=== PATIENT | female | born 1955 | race Caucasian/White ===

== ENCOUNTER 2019-01-05 19:04 | Emergency (ER) | payer MEDICARE ==
[2019-01-05] MEDS ORDERED: ASPIRIN PO ONE (19:43)
[2019-01-05] MEDS ORDERED: MORPHINE IV ONE (19:59)
[2019-01-05] MEDS ORDERED: NITROSTAT SL ONE (19:59)
[2019-01-05] MEDS ORDERED: REGLAN IV ONE (20:00)
[2019-01-05] MEDS ORDERED: CARDENE 50 MG in NACL 0.9% 250ML 230 ML IV SCH (20:00)
[2019-01-05 20:26] LABS: Basophils # (Auto) 0.1 K/mm3 (0.0-0.1); Basophils % (Auto) 0.7 % (0.0-1.8); Eosinophils # (Auto) 0.2 K/mm3 (0.0-0.4); Eosinophils % (Auto) 1.4 % (0.0-4.3); Hematocrit 35.8 % (30.3-42.9); Hemoglobin 11.8 gm/dl (10.1-14.3); Lymphocytes # (Auto) 1.5 K/mm3 (1.2-5.4); Lymphocytes % (Auto) 11.4 % (13.4-35.0); Mean Corpuscular HGB Conc 33 % (30-34); Mean Corpuscular Volume 84 fl (79-97); Monocytes # (Auto) 0.7 K/mm3 (0.0-0.8); Monocytes % (Auto) 5.5 % (0.0-7.3); Platelet Count 163 K/mm3 (140-440); Red Blood Count 4.24 M/mm3 (3.65-5.03); Red Cell Distribution Width 14.3 % (13.2-15.2)
[2019-01-05 20:36] LABS: INR 0.89 (0.87-1.13)
[2019-01-05 20:37] LABS: Partial Thromboplastin Time 25.6 Sec. (24.2-36.6)
[2019-01-05 20:39] LABS: Calcium 8.4 mg/dL (8.4-10.2)
--- NOTE | 2019-01-05 20:45 | XRay Report ---
PROCEDURE: XR CHEST 1V AP TECHNIQUE: Chest radiograph single view. HISTORY: Chest Pain COMPARISONS: None . FINDINGS: Heart: Heart is enlarged. Mediastinum/Vessels: Normal. Lungs/Pleural space: There are bilateral perihilar infiltrates greater on the right. There is no eff usion or pneumothorax.. Bony thorax: No acute osseous abnormality. Life support devices: None. IMPRESSION: Heart is enlarged. There are bilateral perihilar infiltrates greater on the right. There is no effusion or pneumothorax. .. This document is electronically signed by Suleiman Finn MD., January 05 2019 08:43:01 PM ET
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
[2019-01-05 23:16] LABS: Chol/HDL Ratio 2.37 %
--- NOTE | 2019-01-05 23:26 | Cat Scan Report ---
PROCEDURE: CT HEAD/BRAIN WO CON HISTORY: ams FINDINGS: Unenhanced CT of the brain was performed and demonstrates an acute left thalamic hemorrhage , image 29, 0.9 x 0.5 cm. There is no midline shift or mass effect. No extension of hemorrhage into t he ventricular system is seen. There are are moderate chronic appearing small vessel ischemic white matter changes in subcortical an d periventricular white matter. There is intracranial atherosclerosis. The mastoid air cells and middle ears appear clear. There is bilateral maxillary sinus mucosal thicke sophy without acute sinusitis. IMPRESSION: Acute left colonic intraparenchymal hemorrhage This document is electronically signed by Nikolas Lindsey MD., January 05 2019 11:23:37 PM ET
[2019-01-06 01:22] VITALS: BP 159/75
== END 2019-01-06 01:22 | disposition other institution (70) ==
LOC: ED 19:04
DX: I61.8 Other nontraumatic intracerebral hemorrhage (principal); I10 Essential (primary) hypertension; E78.00 Pure hypercholesterolemia, unspecified; Z91.041 Radiographic dye allergy status
CPT/HCPCS: 36415; 70450; 71045; 80048; 80061; 83880; 84484; 85025; 85610; 85730; 93005; 93010; 96365; 96366; 96375; 99285; J2270; J2765; J7050

== ENCOUNTER 2022-02-08 07:47 | Day surgery (SDC) | payer MEDICARE ==
[2022-02-08] MEDS ORDERED: ASPIRIN EC 325 MG TAB PO SCH (08:00)
[2022-02-08] MEDS: SODIUM CHLORIDE 0.9% 500 ML 500 ML IV SCH ×2 (08:54→11:35)
[2022-02-08 09:14] LABS: INR 0.93 (0.87-1.13)
[2022-02-08 09:20] LABS: Calcium 8.9 mg/dL (8.4-10.2)
[2022-02-08 10:20] LABS: Basophils % (Auto) 0.7 % (0.0-1.8); Eosinophils # (Auto) 0.1 K/mm3 (0.0-0.4); Eosinophils % (Auto) 2.4 % (0.0-4.3); Hematocrit 31.7 % (30.3-42.9); Hemoglobin 10.6 gm/dl (10.1-14.3); Lymphocytes # (Auto) 1.3 K/mm3 (1.2-5.4); Lymphocytes % (Auto) 25.4 % (13.4-35.0); Mean Corpuscular HGB Conc 33 % (30-34); Mean Corpuscular Volume 87 fl (79-97); Monocytes # (Auto) 0.4 K/mm3 (0.0-0.8); Monocytes % (Auto) 7.3 % (0.0-7.3); Platelet Count 121 K/mm3 (140-440); Red Blood Count 3.65 M/mm3 (3.65-5.03); Red Cell Distribution Width 13.1 % (13.2-15.2)
[2022-02-08] MEDS ORDERED: HEPARIN/NS 5000 UNIT/500ML 1,000 ML IR ONE (11:09)
[2022-02-08] MEDS ORDERED: diphenhydrAMINE 50 MG/ML VIAL ONE (11:10)
[2022-02-08] MEDS ORDERED: HYDROCORTISONE SOD SUCC 100 MG/2 ML VIAL ONE (11:11)
[2022-02-08] MEDS: VERAPAMIL 5 MG/2 ML INJ ONE ×2 (11:36→11:46)
[2022-02-08] MEDS: fentaNYL 100 MCG/2 ML INJ ONE ×2 (11:36→11:40)
[2022-02-08] MEDS: NITROGLYCERIN SYRINGE 3 ML ONE ×2 (11:36→11:46)
[2022-02-08] MEDS: MIDAZOLAM 2 MG/2 ML INJ ONE ×2 (11:36→11:40)
[2022-02-08] MEDS: LIDOCAINE (2%) 20 MG/1 ML VIAL 50 ML MDV INFILTRATI ONE ×2 (11:37→11:44)
[2022-02-08] MEDS: HEPARIN 10,000 UNITS/10 ML VIAL ONE ×2 (11:37→11:46)
[2022-02-08] MEDS ORDERED: traMADol 50 MG TAB PO PRN (13:35)
--- NOTE | 2022-02-08 13:38 | Discharge Summary ---
Short Stay Discharge Plan Activity: advance as tolerated Weight Bearing Status: Full Weight Bearing Diet: low fat, low cholesterol, low salt Wound: keep clean and dry Special Instructions: smoking cessation, no heavy lifting (3 days) Follow up with: FAUZIA BROOKS MD [Primary Care Provider] - 7 Days JACK HOGAN MD [Staff Physician] - 7 Days
--- NOTE | 2022-02-08 14:19 | Cardiac Catherization Report ---
DATE OF SERVICE: 02/08/2022 CARDIAC CATHETERIZATION REPORT REASON FOR PROCEDURE: Chest pain and abnormal thallium. PROCEDURES: 1. Left heart catheterization. 2. Selective left and right coronary angiography. 3. Left ventricular angiography. 4. Sedation time start 11:40, end 11:53. DESCRIPTION OF PROCEDURE: The patient was prepped and draped in a sterile fashion after informed consent. The right radial cath site was prepped and draped after negative José Antonio's test. Right radial artery was entered using Seldinger technique followed by placement of a 6-American hydrophilic sheath. Routine radial cocktail was administered via the sheath. Selective left and right coronary angiography was performed using a #3.5 left Alanis and a #4 right Alanis. The right Alanis was used for left ventricular angiography. The catheters were removed, sheath removed and hemostasis achieved using manual compression. The patient was returned to the postprocedure unit in stable condition. There were no complications. FINDINGS: HEMODYNAMICS: Left ventricular end-diastolic pressure was 19, following coronary angiography. Ascending aortic pressure was 141/69. There was no significant pressure gradient on pullback across the aortic valve. CORONARY ANGIOGRAPHY: The left main coronary artery was short and free of significant disease. The left anterior descending artery contained diffuse mild atherosclerosis of its proximal, mid and distal segments, with no significant obstructive lesions noted. The circumflex artery similarly contained diffuse mild atherosclerosis of its proximal, mid and distal segments without significant obstructive lesions. The right coronary artery was dominant. This vessel contained a 30% stenosis of its proximal to mid segment, otherwise this vessel was free of significant disease. There was well preserved left ventricular systolic function with ejection fraction 50-55%. CONCLUSION: 1. Mild luminal atherosclerosis as noted above, no significant obstructive lesions noted. 2. Well preserved left ventricular systolic function, ejection fraction is 50%. RECOMMENDATIONS: Aggressive risk factor modification and medical therapy. TID: [id number] RECEIPT: [id number] SHMUEL
[2022-02-08] MEDS ORDERED: SODIUM CHLORIDE 0.9% 1000 ML 1,000 ML IV SCH (14:45)
[2022-02-08 16:16] VITALS: BP 150/80
--- NOTE | 2022-02-10 19:58 | Electrocardiograph Report ---
[facility] Test Date: 2022-02-08 Test Time: 08:17:41 Pat Name: HILARIA PETERSON Department: Room: Gender: F Rn Clinical: LESIA : 1955 Requested By: VERO ALDRICH Order Number: [id number] Reading MD: Vero Aldrich Measurements Intervals [place] Rate: 68 P: 14 OK: 187 QRS: -21 QRSD: 104 T: 25 QT: 397 QTc: 422 Interpretive Statements Sinus rhythm Anterior infarct, old No previous ECG available for comparison Electronically Signed On 02-10-2022 19:58:15 EDT by Vero Aldrich
== END 2022-02-08 16:42 | disposition home or self-care (01) ==
LOC: CATHLABREC 07:47
PROVIDERS: ATTEND Internal Medicine Cardiovascular Disease
DX: R07.89 Other chest pain (principal); I25.10 Atherosclerotic heart disease of native coronary artery without angina pectoris; R94.39 Abnormal result of other cardiovascular function study; E78.5 Hyperlipidemia, unspecified; I12.0 Hypertensive chronic kidney disease with stage 5 chronic kidney disease or end stage renal disease; N18.6 End stage renal disease; D64.9 Anemia, unspecified
CPT/HCPCS: 36415; 80048; 85025; 85610; 93005; 93458; 99156; C1894; J1200; J1644; J1720; J1815; J2250; J3010; J3490; J7040; Q9967